=== PATIENT | female | born 1970 | race Caucasian/White ===

== ENCOUNTER 2018-07-16 01:21 | Outpatient (CLI) | payer BC, SELFPAY ==
--- NOTE | 2018-07-16 08:00 | DI.US_ITS ---
SYMPTOM/DIAGNOSIS: LT SIDED BLOATING SENSATION ABDOMINAL ULTRASOUND: 07/16/18 The examination is technically difficult due to the patient's body habitus. Hepatic parenchyma is somewhat heterogeneous in echotexture. There is an 8 mm in diameter left hepatic lobe lesion which may represent a small cyst or hemangioma. However, this is inadequately visualized for characterization. There are apparent multiple hepatic cysts, the largest in the right lobes superiorly measuring about 3.9 cm in greatest diameter. However, portions of these cysts are not well visualized and there may be wall thickening and/or intralesional increased echogenicity. Pancreas appears intact as visualized. No evidence of cholelithiasis or biliary dilatation. The kidneys are unremarkable in appearance. Abdominal aorta and IVC are of normal diameter. The spleen is unremarkable. CONCLUSION: Probable hepatic cysts as described above. Inadequate visualization to exclude solid lesion. Correlation with hepatic MRI is recommended.
== END 2018-07-16 01:41 ==
PROVIDERS: PCP Nurse Practitioner Family; Visit Provider Nurse Practitioner Family
DX: R10.32 Left lower quadrant pain (principal); R14.0 Abdominal distension (gaseous); K76.89 Other specified diseases of liver
CPT/HCPCS: 76700

== ENCOUNTER 2019-05-26 12:51 | Outpatient (REF) | payer BC, SELFPAY ==
--- NOTE | 2019-05-26 09:30 | PAPFT_PTH ---
PATIENT: Armida Sweeney LOC: [facility] U#:[id number] AGE/SX: 49/F ROOM: RE05/26/[address]: ILIA Olson : 1970 BED: DIS: 05/26/2019 SPEC #: [id number] RECD: 05/26/19 13:13 STATUS: BELLA REQ #: [id number] DESMOND: 05/26/19 09:[address]: Alexandria Navarro [facility] Cytology RECD BY: Bárbara Gomez Tissues: 1 - CX/ENDOCX FOR PAP SMEARS Procedures: PAP THIN PREP/UVM Screening HPV DNA PROBE Comments: [id number]
== END 2019-05-26 13:11 ==
LOC: LBN 12:51
PROVIDERS: PCP Nurse Practitioner Family; Visit Provider Nurse Practitioner Family
DX: N76.0 Acute vaginitis (principal); Z12.4 Encounter for screening for malignant neoplasm of cervix; Z11.51 Encounter for screening for human papillomavirus (HPV)
CPT/HCPCS: 88142; 87480; 87510; 87624; 87660

== ENCOUNTER 2019-06-03 01:45 | Outpatient (CLI) | payer BC, SELFPAY ==
[2019-06-03 11:40] LABS: Anion Gap 10.7 mmol/L (3-11); BUN 13 mg/dL (7-18); CO2 25.3 mmol/L (21.0-32.0); CREATININE 0.81 mg/dL (0.55-1.02); Calcium 8.7 mg/dL (8.5-10.1); Calculated LDL 114 mg/dL; Chloride 107 mmol/L (98-107); Cholesterol 180 mg/dL (50-200); Glucose 81 mg/dL (70-100); HDL Cholesterol 57 mg/dL (40-60); Potassium 4.3 mmol/L (3.5-5.1); Sodium 143 mmol/L (136-145); Triglyceride 47 mg/dL (30-150)
== END 2019-06-03 02:05 ==
PROVIDERS: PCP Nurse Practitioner Family; Visit Provider Nurse Practitioner Family
DX: E66.9 Obesity, unspecified (principal); E78.5 Hyperlipidemia, unspecified
CPT/HCPCS: 36415; 80048; 80061; 83721; 83036

== ENCOUNTER 2019-06-09 00:40 | Outpatient (CLI) | payer BC, SELFPAY ==
--- NOTE | 2019-06-09 10:45 | DI.MAMMO_ITS ---
SYMPTOM/DIAGNOSIS: SCREENING Z12.31 MAMMOGRAMS: Mammograms were interpreted according to the usual protocol including computer analysis with CAD system, tomosynthesis and C view imaging. Comparison with prior examinations. Breast density category B. No suspicious masses or microcalcifications are seen. There is no definite evidence of malignancy. IMPRESSION: Category 1, negative mammogram. Routine screening is recommended. Breast density category B. MQSA ASSESSMENT OF FINDINGS: Negative. Category 1. Patient will receive a letter notifying them of these results. BI-RADS category B. There are scattered areas of fibroglandular density.
== END 2019-06-09 01:00 ==
PROVIDERS: PCP Nurse Practitioner Family; Visit Provider Nurse Practitioner Family
DX: Z12.31 Encounter for screening mammogram for malignant neoplasm of breast (principal)
CPT/HCPCS: 77063; 77067

== ENCOUNTER 2019-12-12 10:58 | Outpatient (CLI) | payer BC, SELFPAY ==
--- NOTE | 2019-12-11 15:57 | DI.RAD_ITS ---
EXAM: XR HIP RT COMPLETE AP PELVIS CLINICAL HISTORY: Worsening right hip pain with limited ROM. M25.551 PAIN RT HIP TECHNIQUE: COMPARISON: No exams were available for comparison FINDINGS: Two views were obtained. There is marked narrowing of cartilaginous joint space of the right hip sup eriorly. There is moderate subchondral sclerosis of the acetabulum with mild acetabular spurring. F emoral head shows probable slight subchondral sclerosis and minimal marginal osteophyte formation. Slight DJD left hip noted. IMPRESSION: Severe DJD right hip.
== END 2019-12-12 11:18 ==
PROVIDERS: PCP Nurse Practitioner Family; Visit Provider Nurse Practitioner Family
DX: M25.551 Pain in right hip (principal); M16.11 Unilateral primary osteoarthritis, right hip
CPT/HCPCS: 73502

== ENCOUNTER 2020-01-05 11:57 | Outpatient (CLI) | payer BC, SELFPAY ==
--- NOTE | 2020-01-05 11:15 | DI.RAD_ITS ---
EXAM: XR STANDING ALIGNMENT CLINICAL HISTORY: hip pain TECHNIQUE: COMPARISON: No exams were available for comparison FINDINGS: AP views of the lower extremities were obtained for leg length determination. There are severe degen erative changes of the right hip and mild degenerative changes of the left hip. IMPRESSION:
== END 2020-01-05 12:17 ==
PROVIDERS: PCP Nurse Practitioner Family; Visit Provider Student in an Organized Health Care Education/Training Program
DX: M16.0 Bilateral primary osteoarthritis of hip (principal); M25.551 Pain in right hip; M25.552 Pain in left hip
CPT/HCPCS: 77073

== ENCOUNTER 2020-01-09 04:23 | Outpatient (CLI) | payer BC, SELFPAY ==
[2020-01-09] MEDS: methylPREDNISolone ACETATE 80 MG/ML VIAL IM (15:16)
[2020-01-09] MEDS: Omnipaque 300 MG/ML 10 ML BTL IJ (15:17)
[2020-01-09] MEDS: Bupivacaine 0.5% Pres-Free 10 ML VIAL 6 ML IJ (15:19)
--- NOTE | 2020-01-09 15:20 | DI.RAD_ITS ---
EXAM: RF JOINT INJECTION FLUORO GUID CLINICAL HISTORY: RT HIP PAIN, RT HIP INJ UNDER FLUORO, M25.551. TECHNIQUE: 2D and realtime digital imaging was performed. COMPARISON: No exams were available for comparison FINDINGS: Fluoroscopy was provided for Dr. Spear for guidance while performing a right hip injection. Pleprema malhotra see procedure note for details. Fluoro Time: 9 seconds
--- NOTE | 2020-01-09 19:30 | W.PROCNOTE ---
Date of service: 01/09/20 Time of Service: 14:30 Procedure Note Date of procedure: 01/09/20 Procedure: Right Hip Injection with Fluoroscopic Guidance Surgeon/Proceduralist/Physician: Ray Spear Procedure Diagnosis: Right Hip Osteoarthritis Procedure Indications: Armida has had persistent pain of the RIGHT hip and groin. Noninvasive measures have been tried. To serve as both diagnostic and therapeutic, an injection under fluoroscopy was recommended. I had discussed the risks of the procedure and the patient elected to proceed. Procedure Description: Armida was greeted in the flouroscopy room. The correct side was identified and the consent was reviewed with the patient and signed. The patient was then placed in the supine position on the fluoroscopy table. The RIGHT hip was then prepped with Chloraprep. The anterolateral injection starting point was identiifed by bony landmarks and fluoroscopy. The skin and soft tissue in the tract of the injection was anesthetized with 1% Lidocaine. A spinal needle was then inserted deep into the hip joint at the level of the lateral femoral neck under fluoroscopic guidance. A small amount of Omnipaque solution was injected to confirm intraarticular placement. Once confirmed, the hip was injected with 6cc of 0.5% Bupivicaine and 80mg of Depo-Medrol. A bandaid was placed on the injection site. The patient tolerated the procedure well and noted improvement in pre-injection pain.
== END 2020-01-09 04:43 ==
PROVIDERS: PCP Nurse Practitioner Family; Visit Provider Student in an Organized Health Care Education/Training Program
DX: M25.551 Pain in right hip (principal); M16.11 Unilateral primary osteoarthritis, right hip
CPT/HCPCS: 20610; 77002; J1040

== ENCOUNTER 2020-04-23 04:09 | Outpatient (CLI) | payer BC, SELFPAY ==
--- NOTE | 2020-04-22 10:13 | PDOC.CMIN ---
- If Service Date Differs Date of service: 04/22/20 Time of Service: 10:13 Care Management Initial Assess REASON FOR HOSPITALIZATION:: Right hip replacement surgery. PAST MEDICAL HISTORY/PAST SURGICAL HISTORY:: Medical/Surgical History: Trochanteric bursitis, right hip, arthritis of right hip, obesity, and hyperlipidemia. PREVIOUS FUNCTIONAL STATUS/SOCIAL/FAMILY SUPPORTS:: Armida lives in [place] with her , Enrique, and their youngest son. 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 Armida reports having a lot of support and people she can depend on in the community. Armida is independent with her ADLs at baseline. CURRENT FUNCTIONAL STATUS:: CM telephones Armida to assess potential needs and services post hip surgery, scheduled for 04/27/2020. Armida lives in a two-story home and her bedroom is on the second floor. She is making arrangements so she can remain on the first floor for a few days after her return home from the hospital. ADVANCE DIRECTIVES:: None on file. Has patient been provided with info about the portal/API?: Yes Did the patient sign up for the portal?: Yes (Previously enrolled.) CODE STATUS:: Full Code INSURANCE COVERAGE / FINANCIAL ISSUES:: [facility] CURRENT HOME/COMMUNITY SERVICES/EQUIPMENT:: Armida has a cane at home and a shower with a built-in seat. She will be purchasing a toilet riser seat prior to her surgery. She has no in-home or community services. PRIMARY CARE PHYSICIAN:: CHAGO Olson ([facility]) POTENTIAL DISCHARGE NEEDS:: FWW to be provided by CM, follow-up appointment with Dr. Spear, and outpatient physical therapy. PATIENT/FAMILY EDUCATION NEEDS:: Discharge instructions, limitations, follow-up plan of care, including Ask Me Three and self-management. ANTICIPATED BARRIERS TO DISCHARGE:: No anticipated barriers at this time. TRANSPORTATION:: Via private vehicle with family. PLAN:: Anticipate Armida will be discharged home when medically cleared by provider. She will follow up with Dr. Spear, outpatient physical therapy and her plan of care as prescribed. Her , Enrique, will drive her home via private vehicle when ready.
[2020-04-24 00:59] LABS: COVID-19 RT-PCR UVMMC Result Negative (Negative)
== END 2020-04-23 04:29 ==
PROVIDERS: PCP Nurse Practitioner Family; Visit Provider Student in an Organized Health Care Education/Training Program
DX: Z11.59 Encounter for screening for other viral diseases (principal); Z01.818 Encounter for other preprocedural examination
CPT/HCPCS: U0003

== ENCOUNTER 2020-04-23 09:13 | Outpatient (CLI) | payer BC, SELFPAY ==
[2020-04-23 12:02] LABS: HCT 43.7 % (36.0-46.0); HGB 14.2 g/dL (12.0-15.5); Mean Corp. HGB Concentration 32.5 g/dL (32.0-36.0); Mean Corpuscular Hemoglobin 27.8 pg (27.0-33.0); Mean Corpuscular Volume 85.5 fL (80-95); Mean Platelet Volume 9.8 fL (8.0-11.0); Platelet Count 359 x1000/uL (130-400); RBC 5.11 m/cumm (4.00-5.20); RBC Distribution Width 13.7 % (11.7-14.6); White Blood Cell Count 7.93 k/cumm (4.4-10.8)
[2020-04-23 12:32] LABS: Anion Gap 9.6 mmol/L (3-11); BUN 14 mg/dL (7-18); CO2 27.4 mmol/L (21.0-32.0); CREATININE 1.01 mg/dL (0.55-1.02); Calcium 8.9 mg/dL (8.5-10.1); Chloride 105 mmol/L (98-107); Estimated GFR 58.02 (mL/min/1.73m2); Glucose 101 mg/dL (74-106); Sodium 142 mmol/L (136-145)
== END 2020-04-23 09:33 ==
PROVIDERS: PCP Nurse Practitioner Family; Visit Provider Student in an Organized Health Care Education/Training Program
DX: M25.551 Pain in right hip (principal); M16.11 Unilateral primary osteoarthritis, right hip; Z01.818 Encounter for other preprocedural examination; Z01.812 Encounter for preprocedural laboratory examination
CPT/HCPCS: 36415; 80048; 85027; 86850; 86900; 86901

== ENCOUNTER 2020-04-23 11:04 | Outpatient (CLI) | payer BC, SELFPAY ==
--- NOTE | 2020-04-23 11:00 | DI.RAD_ITS ---
EXAM: XR PELVIS AP CLINICAL HISTORY: PRE OP. TECHNIQUE: 2D digital imaging was performed. COMPARISON: No exams were available for comparison FINDINGS: The right hip there is marked narrowing of the joint space. There is also subchondral sclerosis and possibly subchondral cysts. The left hip is well maintained. The bones are normally mineralized. T he soft tissues are unremarkable IMPRESSION: Marked arthritic changes of the right hip. DATA REPOSITORY: RADIATION DOSE DELIVERED:
== END 2020-04-23 11:24 ==
PROVIDERS: PCP Nurse Practitioner Family; Referring Provider Nurse Practitioner Family; Visit Provider Student in an Organized Health Care Education/Training Program
DX: M25.551 Pain in right hip (principal); M16.11 Unilateral primary osteoarthritis, right hip
CPT/HCPCS: 72170

== ENCOUNTER 2020-04-27 06:07 | Observation (INO) | payer BC, SELFPAY ==
[2020-04-27] VITALS (14 sets, daily range): BP systolic 111–132; BP diastolic 52–87; PULSE 66–88; RESP 11–18; TEMP 36.1–36.9; O2SAT 94–100
[2020-04-27] MEDS: Acetaminophen 500 MG TAB 1000 MG PO ×2 (06:39→12:54)
[2020-04-27] MEDS: Lactated Ringers 1,000 ML 80 ML IV ×2 (06:39→10:09)
[2020-04-27] MEDS: Celecoxib 200 MG CAP 400 MG PO (06:39)
--- NOTE | 2020-04-27 07:33 | W.PM.DS.N ---
Date of service: 04/27/20 DS: Diagnosis Discharge Diagnosis (1) Arthritis of right hip: Status: Chronic Discharge Plan Disposition Patient Disposition: HOME Condition: Good Discharge Details Reason For Visit: Right Hip DJD Admit Date/Time: 04/27/20 06:07 Admit Provider: Ray Spear Attending Provider: Ray Spear [facility] Course: Patient was admitted to the medical/surgical floor following the procedure. The surgery was tolerated well without any notable medical, surgical, or anesthetic complications. Mobilization began postoperatively. She was voiding spontaneously. Vitals were stable. Physical therapy worked with the patient and was cleared for discharge home. No acute medical issues. Pain was controlled on oral regimen. Home Meds and New Rx's Prescriptions: New celecoxib 200 mg capsule 200 mg PO BID PRN (Reason: pain) Qty: 60 RF: 1 aspirin 81 mg tablet,delayed release (DR/EC) 81 mg PO BID Qty: 60 RF: 0 acetaminophen 500 mg tablet 1,000 mg PO Q8H PRN (Reason: pain) Qty: 90 RF: 3 pantoprazole 40 mg tablet,delayed release (DR/EC) 40 mg PO DAILY Qty: 30 RF: 0 docusate sodium [Colace] 100 mg capsule 100 mg PO BID PRNQty: 10 RF: 0 oxycodone 5 mg tablet 5 mg PO Q4H Qty: 18 RF: 0 Continued ut-lyj-xiowl acid-lutein 1 EACH tablet,chewable 1 ea PO daily prn Qty: 1 RF: 0 Discharge Instructions Additional Instructions: Dr. Spear's Total Hip Discharge Instructions Activity: The most important activity is to walk. You should try to take short walks a few times a day. You have no restrictions on movement or positioning, but do not try to force what you do. You will find some stiffness and weakness with hip flexion (lifting your knee). Do not try to strengthen this too early, continue to practice walking and stairs and this will come. - Outpatient physical therapy can be helpful to help return you to a normal gait and improve your flexibility and strength. This can start around 2 weeks. For most patients, it?s not necessary. Usually this is determined at the time of discharge or at the first post-operative visit. - You should wear the PORSHA hose on both legs for 2 weeks. You may remove those at night. These prevent blood pooling and swelling. Dressing: Keep the surgical dressing in place for at least one week, although it may stay in place untill follow-up. It may get wet after 3 days but avoid soaking the dressing. If it gets wet, just lightly pat dry. Most people prefer to cover the dressing with some ClingWrap, Saran Wrap, to keep it dry. After the first week it may be removed if desired and then replaced with light gauze and tape or nothing. It is important to always keep some gauze or the dressing between skin folds, especially when you are sitting, so the incision is not folded over on itself at the belly fold. Medications: - You should take Tylenol and an anti-inflammatory, Celebrex, as your primary pain control medications. If the Celebrex is too expensive, you may take 2 Aleve twice a day. - You have been prescribed a stronger pain medication Oxycodone for breakthrough pain, take as needed as prescribed. - You have also been prescribed a stomach acid reduction agent Pantoprozole to help reduce stomach acid and reflux. - You will be taking Aspirin 81mg twice a day for DVT prevention unless instructed otherwise. - If you have constipation you should take Colace or Miralax (both [id number]). A prescription for Colace has been called in as well. It takes most people 3-4 days to have a bowel movement. Follow-up: 2 weeks. If you have any acute concerns or questions, please do not hesitate to contact the office at [phone]. You may contact Dr. Spear with any questions after hours through the hospital at [phone] or on his cell phone at [phone]. Referrals: Ray Spear MD [ [facility] STAFF PHYSICIAN] - 05/13/20 9:00 am Activity:: Activity as Tolerated Equipment/Supplies:: Walker Diet:: As Tolerated Discharge Orders Discharge Orders: Discharge Order (Routine); Ordered 04/27/20 Ordered By: Ray Spear DS: Summary Status at Discharge Functional status at discharge: uses cane/walker Overall status at discharge: patient is progressing back to baseline Mental Status: mental status grossly normal Speech and Movement: speech and movement normal Mood: congruent mood Affect: normal affect Exam Psych Mental Status: mental status grossly normal Speech and Movement: speech and movement normal Mood: congruent mood Affect: normal affect DS: Data Vitals/I&O Vitals and I&O: Vital Signs Temperature 36.7 C 04/27/20 06:22 Pulse 83 04/27/20 06:22 Pulse Rhythm Regular 04/27/20 06:22 Respiratory Rate 18 04/27/20 06:22 Respiratory Effort 04/27/20 06:22 Respiratory Depth Normal 04/27/20 06:22 Blood Pressure 132/74 04/27/20 06:22 Pulse Oximetry 100 04/27/20 06:22 Oxygen Delivery Method Room Air 04/27/20 06:22 Oxygen Flow Rate 0 04/27/20 06:22 Intake & Output 04/26/20 04/26/20 04/27/20 11:59 23:59 11:59 Weight 91.9 kg [facility] Medical History Herpes simplex labialis (Inactive) Hyperlipidemia (Chronic) Obesity (Chronic) Trochanteric bursitis, right hip (Acute) Surgical History S/P dilation and curettage (Acute ~1993) Family History Mother RA (rheumatoid arthritis) Polymyalgia rheumatica Father COPD (chronic obstructive pulmonary disease) Asthma Sister Carcinoid tumor Chromophobe renal cell carcinoma Son No problems noted. Son No problems noted. Daughter No problems noted. Maternal Grandfather Cancer of spine Maternal Grandmother Myocardial infarction Heart disease Ovarian cancer Paternal Grandfather No problems noted. Paternal Grandmother No problems noted. Social History Smoking/Tobacco Use Status: Never Drug use: Never Current gender identity: female
[2020-04-27] MEDS: ceFAZolin 2 GM/50 ML BAG IVPB (07:40)
[2020-04-27] MEDS: Ketorolac 30 MG/ML VIAL (08:12)
[2020-04-27] MEDS: Bupivacaine 0.25% Pres-Free 30 ML VIAL (08:13)
--- NOTE | 2020-04-27 09:00 | DI.RAD_ITS ---
EXAM: XR HIP RT IN OR CLINICAL HISTORY: Arthritis of right hip. TECHNIQUE: 2D and realtime digital imaging was performed. COMPARISON: No exams were available for comparison FINDINGS: Fluoroscopy was provided in the OR for Dr. Spear. Hard copy images show placement of a right hip prosthesis. The components appear well aligned. FLUORO TIME; 30 seconds RADIATION DOSE DELIVERED:
--- NOTE | 2020-04-27 10:27 | ROE_ITS ---
Date of service: 04/27/20 Time of Service: 09:28 Operative Note Operative Note DATE OF PROCEDURE: 04/27/20 PRE-OP DIAGNOSIS: Right Hip Osteoarthritis POST-OP DIAGNOSIS: same PROCEDURE: Right Anterior Total Hip Arthroplasty SURGEON: Ray Spear LINING INSERTER: Stiven Rose ANESTHESIA: spinal ESTIMATED BLOOD LOSS: 900 PATHOLOGY: none sent TOURNIQUET TIME: 0 COMPLICATIONS: None Patient was transported to: PACU Patient's condition: stable Implants: 1. Depuy [place] Acetabular Component, 50mm 2. Depuy Acetabular Liner, [id number] 3. Depuy Corail High Offset Femoral Stem, Size 12 4. Depuy Altrx Ceramic Femoral Head, Size 32+1mm Indications: I have seen Armida in clinic for symptoms of hip arthritis, confirmed with radiographic findings. She has exhausted nonoperative methods and was having significant limitations in daily function and desired better function and less pain. I discussed the technical details of a hip replacement. I explained the risks of the procedure to include, but not limited to, bleeding, infection, pain, stiffness, fracture, damage to nerves and vessels, damage to muscles and tendons, loosening, instability, leg length inequality, need for repeat procedure, blood clot and cardiopulmonary demise. Despite these risks, Armida elected to proceed. Findings: There was significant signs of arthritis throughout the hip. Additionally, there was extensive synovitis and inflammatory changes within the hip. Procedure Description: Armida was greeted in the preoperative holding area where the correct side was identified and marked. The consent was reviewed with the patient and signed. The history and physical was updated. All questions were answered. She was taken back to the operating room. A spinal anesthestic was then administered. The patient was placed into the supine position on the operating room table. The patient was then positioned onto the ARCH table. Both feet were wrapped with Webrill cotton wrap along with Coban. The feet were placed in specialized boots for the ARCH table, well seated within the boot and secured. SCDs were applied. The patient was then slid down onto a peroneal post and the nonoperative leg was secured in a leg perea attached to the table. The operative side was placed into the ARCH table attachment and bed height and positioning was secured. A preoperative AP pelvis was obtained to serve as a reference for determining leg lengths. Prophylactic antibiotics in the form of Cefazolin were administered. 1g of Tranxemic Acid was given intravenously within 30 minutes of incision. The right leg was then prepped with Chloraprep and draped in a standard fashion. A second prep with Chloraprep was performed prior to placement of a shower-curtain type drape with Iodine impregnated skin protection. A timeout to confirm correct identity, side and site, procedure, allergies, anesthesia, and medical concerns was performed. An obliquely oriented incision was made starting lateral to the ASIS and running distal over the Tensor Fascia Almita (TFL) muscle belly toward the fibular head, approximately 10cm. The skin and soft tissue was dissected sharply, through Sera?s fascia, and to the fascia of the TFL. With the fascia and superior border of the IT band identified, the fascia was incised with a new knife just above any perforators from the IT band. The TFL muscle belly was bluntly dissected away from the fascia and moved laterally. The fat between TFL and rectus was identified to ensure the dissection was not within the TFL. Blunt dissection created space between abductors and the capsule and retractor was placed over the lateral femoral neck. The fibers of the rectus femoris tendon were identified and these were freed from the anterior capsule. A second cobra retractor was placed around the medial femoral neck. The TFL was further retracted laterally to show the deep fascia. Careful dissection through this layer identified three main crossing vessels of the lateral femoral circumflex. These were cauterized in multiple locations and then cut without any noticeable bleeding. The TFL was further released bluntly from the deep fascia to expose anterior hip capsule and fat The Kishore orthopaedic retractor was then placed beneath the TFL and against sartorius and medial soft tissues to protect and retract the soft tissues. A T-capsulotomy was then performed starting at the superior lateral acetabulum and moving distally to the intertrochanteric ridge. These capsular flaps were tagged with a No. 1 Ethibond and elevated from within. The capsular flaps were released to the shoulder of the lateral neck and to the lesser trochanter to give excellent visualization of the proximal femur. A neck osteotomy was performed using an oscillating saw based on preoperative templates. This cut started in the shoulder and of the lateral neck and exited medially. The saw was at all times directed medially to avoid injury to the greater trochanter. 6cm of traction was applied to the leg and the osteotomy opened. The femoral head was removed with a corkscrew, making sure to protect the TFL on its exit. This was measured on the back table to determing the starting reamer size. Portions of the rectus obscuring visualization were minimally elevated off the superior acetabulum. An anterior retractor was placed over the anterior wall between capsule and labrum and attached to the Gripper retraction system. A posterior retractor was placed similarly. This provided excellent visualization. The contents of the cotyloid fossa were removed with electrocautery and the labrum was removed with a knife. There was a notable floor osteophyte. There was significant chondromalacia of the superior acetabulum. Acetabular reaming began with a 46mm reamer. This first reaming was directed anterior to posterior and medial to get down to the true floor. This was inspected and reamed until the true floor was reached. The anterior retractor was then released and entry and exit was provided by traction on the capsular flaps. I then reamed sequentially up to a 50mm reamer where good fit was obtained. The larger reamers were oriented based on anatomical reference of the anterior and lateral matute to ensure proper abduction and anteversion. Positioning and size was confirmed with the fluoroscopy. A 50mm Depuy [place] acetabular component was selected. The deep tissues were irrigated. The acetabular component was then impacted in a position of about 40-45 degrees of abduction and 15-20 degrees of anteversion, using the patient?s anatomy as the ultimate landmark. Fluoroscopy was used to confirm this. There was excellent clearing house clerk of the acetabular component and the inserting handle was removed. The acetabular liner, Depuy [id number] polyethylene liner, was inserted and lined up with the tines of the acetabular component. There was no soft tissue interposition. The liner was then impacted into position and confirmed to be well-seated. A portion of the erica-articular cocktail was then injected around the acetabulum into the capsule and periosteum. This cocktail consisted of 50cc of 0.25% Bupivicaine and 20cc of Exparel, expanded to a total of 120cc. Traction was released from the femur. The leg was rotated to 120 degrees. Any remaining medial capsule was released until the lesser trochanter was easily pa lpable. A Machado retractor was placed medially. The lateral capsule was further released into the shoulder to allow access to the greater trochanter. A Machado retractor was placed over the greater trochanter which allowed the trochanter to flip in front of the capsule for excellent exposure. The leg was brought down into maximal extension and 20 degrees of adduction while ensuring there was no impingement on the acetabulum. Any remnant capsule within the trochanter was released. Piriformis and obturator externis were identified and protected. There was excellent access to the proximal femur. The lateral neck remnant was removed with a rongeur. A blunt canal probe was used to identify the canal and trajectory for later broaching. A box osteotome initiated the broach course. A small curved rasp and a curved curette were used to work laterally. Broaching then began with a size 8 Corail broach. This was inserted manually around the trochanter and into the canal before mallet blows. The broach was seated to a few millimeters below the cut level based on the neck cut and the preoperative template. Sequential broaching was continued with the TrackingPoint pneumatic broaching device until a tight fit was obtained with good rotational control of the femur. A trial standard neck was inserted along with a +5 trial head. The leg was brought out of extension and adduction and then reduced with traction and internal rotation. The leg was stable anteriorly in a position of 30 degrees of extension and 90 degrees of external rotation. Fluoroscopy was used to ensure there was no fracture and the stem was seated well. Leg lengths were checked with an AP pelvis and pelvic reference points. [employer] navigation system was used to confirm appropriate positioning and leg length and offset. Based on the templating software, we had over-restored leg length by 1- 2mm and had not enough offset, so I went with a High Offset stem with a +1 head to give some leg length and slightly more offset. Once content with the desired offset and leg lengths, the leg was brought back into extension, external rotation and adduction. The periosteum and surrounding tissue was injected with remaining portion of the erica-articular cocktail. The proximal femur was irrigated as well as the deep tissues. The Depuy Corail High Offset stem, size 12, was then manually inserted into the proximal femur making sure to control rotation. It was then malleted into position with light blows, giving breaks to allow bone expansion and decrease risk of fracture. The selected Depuy Altrx Ceramic Head, size 32+1mm, was then placed onto the clean and dry trunnion and secured with impaction onto the tapered fit. The leg was brought back out of extension and adduction and reduced with t raction and internal rotation. Stability was confirmed with no shuck at 90 degrees of external rotation and 30 degrees of extension. No impingement through range of motion arc. Final x-ray images were obtained with fluoroscopy to confirm adequate positioning and no intraoperative fracture. The deep tissues were thoroughly irrigated with Irrisept chlorhexadine solution. The second dose of TXA 1g was administered intravenously.The capsule was then reapproximated with the previously placed Ethibond sutures. The TFL fascia was finally closed with a No. 2 Stratafix, barbed suture. Deep tissues were then reapproximated with 0 Vicryl and a running 2-0 Vicryl. The skin was closed with a running 4-0 Monocryl in a subcuticular fashion. This was reinforced with skin glue. A Mepilex silver dressing was applied. At the end of the case, all counts were correct. Armida was transferred to the hospital bed without difficulty and suffering no apparent complication, although she did have notable bleeding. The majority the bleeding was from the bony surfaces without any notable vascular injury. Armida has a good prognosis. Physical therapy will start today and without restrictions, weight-bearing as tolerated. Aspirin 81mg BID will be used for DVT prophylaxis.
--- NOTE | 2020-04-27 11:30 | IN_ITS ---
Date of service: 04/27/20 Time of Service: 11:30 PT Notes Visit Reasons: Right Hip DJD Physical Therapy Inpatient Initial Evaluation Date: 04/27/2020 Referring Doctor: Ray Spear MD PT Orders: PT CONSULT: Status post Ortho surgery. Status post right SAHRA. Precautions: Fall. Standard. WBAT on right LE. Patient Profile/Admitting Diagnosis: Armida is a 50-year-old female with primary unilateral osteoarthritis of the right hip status post total hip arthroplasty on postoperative day 0. PMHX: Medical History Herpes simplex labialis (Inactive) Hyperlipidemia (Chronic) Obesity (Chronic) Trochanteric bursitis, right hip (Acute) Surgical History S/P dilation and curettage (Acute ~1993) Social History/Home Situation: Armida lives with in a private home with 2 steps to enter that leads onto a porch and another 2 steps to get into the house. She has 10 steps to negotiate to the second floor of the house where her bedroom is but she states that the ground floor has been made ready for her once she comes back home from the hospital. She is independent with all aspects of ADLs prior to surgery. 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 Equipment Owned/DME: None Subjective: Armida reports some numbness side of her right thigh. She feels that she does not have full control of her right hip and knee. She is agreeable to trying out walking with the use of a walker. Objective: General Observation: IV in the right UE. Mepilex Ag over surgical incision. Bilateral TEDS on. Mental Status: Alert and oriented x4 Pain: Denies pain or discomfort but did say that she has some soreness on the right hip with movement and with ambulation activity. Vital Signs: Within normal limits as monitored by nursing staff before and after PT session. ROM: Right Upper Extremity: Shoulder Flexion WFL. Shoulder abduction WFL. Elbow flexion WFL. Wrist flexion WFL. Opening and closing of hand WFL. Left Upper Extremity: Shoulder Flexion WFL. Shoulder abduction WFL. Elbow flexion WFL. Wrist flexion WFL. Opening and closing of hand WFL. Right Lower Extremity: Hip flexion WFL. Hip abduction WFL. Knee flexion WFL. Ankle dorsiflexion WFL. Ankle plantarflexion WFL. Left Lower Extremity: Hip flexion WFL. Hip abduction WFL. Knee flexion WFL. Ankle dorsiflexion WFL. Ankle plantarflexion WFL. Strength: Right Upper Extremity: Shoulder flexors 5/5. Shoulder abductors 5/5. Elbow flexors 5/5. Elbow extensors 5/5. Heading Matcher And Assembler strong. Left Upper Extremity: Shoulder flexors 5/5. Shoulder abductors 5/5. Elbow flexors 5/5. Elbow extensors 5/5. Heading Matcher And Assembler strong. Right Lower Extremity: Hip flexors 4/5. Hip abductors 4/5. Knee flexors 4/5. Knee extensors 4/5. Ankle dorsiflexors 5/5. Ankle plantarflexors 5/5. Left Lower Extremity:Hip flexors 5/5. Hip abductors 5/5. Knee flexors 5/5. Knee extensors 5/5. Ankle dorsiflexors 5/5. Ankle plantarflexors 5/5. Sensation: Intact as to pain and pressure on bilateral lower extremities. Some numbness reported on the lateral side of right thigh. Bed Mobility/Transfers: Supine to sit standby assist Sit to stand contact-guard assist Stand to sit standby assist Bed to chair contact-guard assist Chair to bed contact-guard assist Gait: Patient tolerated level surface ambulation 150 feet using front wheeled walker with WBAT on right LE requiring contact-guard assist and IV pole management of PT. Nurse Phillip provided wheelchair follow for safety. Step-to gait pattern. Soreness reported on right hip. No LOB. No SOB. Balance: Static Sitting: Normal Dynamic Sitting: Normal Static Standing: Fair Dynamic Standing: Fair Special Tests: Mobility Limitations Standardized Measure [facility] AM-PAC 6 clicks Basic Mobility Inpatient Short Form: Raw Score: 19 CMS Score: 42% deficit Informed Consent/Education: Patient instructed in purpose of PT consult and plan of care. Assessment: Armida demonstrates with functional mobility decline, need for assistive ambulatory device for all mobility ADL performance, unsteadiness of gait, and decrease in strength and the right hip major muscle groups resulting from postoperative status. Armida is a 50-year-old female with primary unilateral osteoarthritis of the right hip status post total hip arthroplasty on postoperative day 0. Patient presents with clinical signs and symptoms consistent with current/admitting diagnoses that have resulted to mobility limitations, gait instability, generalized weakness, and impairment of motor control as demonstrated by the following impairment level findings: 1. Decreased strength to right hip major muscle groups 2. Impaired standing balance 3. Impaired activity tolerance Impairments are contributing to the following functional limitations: 1. Increased dependence with transfers 2. Inability to safely ambulate without assistive device and physical assistance 3. Increase completion time for mobility ADL performance 4. Increased fall risk 5. Inability to negotiate steps alone safely Patient is assessed as a 22808 moderate complexity based on the following: History: 50-year-old female with impairment level findings, functional limitations, and past medical history as indicated above Examination: Demonstrable impairment in strength, balance, and mobility level with underlying impairments and functional limitations as documented above Presentation:Evolving Decision Makin moderate complexity Goals: Goals X 1 day 1. Supine-Sit independent 2. Sit-Supine independent 3. Sit-Stand independent 4. Stand-Sit independent 5. Bed-Chair independent 6. Chair-Bed independent 7. Independent gait on level surface with use of least restrictive device for at least 300 feet without report of pain nor dyspnea 8. Independent stair negotiation while holding onto bilateral rails for at least 5 steps without report of pain nor dyspnea 9. Independent with home exercise program 10. Good static and dynamic standing balance/tolerance Plan of Care/Treatment Plan: 1-2x/day, 7 days/week x 1 week. Plan of care has been reviewed with the COMMAND AND CONTROL OFFICER providing the service under Physical Therapy direction. Initiate Physical Therapy intervention for strengthening, bed mobility, transfers, gait, stairs, balance training, use of assistive device. PT intervention: Session today consisted of initial physical therapy evaluation as well as education and training on functional mobility performance using the front wheeled walker. Patient also tolerated was educated and trained on room exercises consisting of gluteal setting x 10, quadriceps setting x10, and ankle pumping x20 to be done every 1 to 2 hours to minimize postoperative soft tissue complications. DISCHARGE RECOMMENDATIONS: Home when medically cleared by orthopedic surgeon. Outpatient physical therapy services according to orthopedic surgeon's timeline recommendations. TREATMENT CODE/TIME: 45345 x 30 minutes, 51410 X 15 minutes beginning at 11:30 AM. Thank you very much for this referral. Mayuri Angulo PT, DPT, CLT [facility], [place]
--- NOTE | 2020-04-27 13:08 | PDOC.CMDIS ---
- If Service Date Differs Date of service: 04/27/20 Time of Service: 13:08 LACE Index Scoring Tool - Questions: Length of Stay (in days): 1 Acuity (Admit via E.D.?): No E.D. Visits: 0 - Answers: Total Score: 1 Risk of Readmission: Low Risk Care Management Discharge Reason for Hospitalization: SAHRA Discharge Plan: Armida is being discharged home today. CM provided her with a FWW prior to discharge. PT will set up and adjust for the patient. Armida denies any additional needs at this time. She will transport home with her family at time of discharge. Patient/Family Education Needs: Discharge education, limitations and follow up plan of care including ask me three and self management.
[2020-04-27 13:42] LABS: HCT 41.9 % (36.0-46.0); HGB 13.8 g/dL (12.0-15.5)
[2020-04-27] MEDS: ceFAZolin 1 GM/50 ML BAG IVPB (14:28)
--- NOTE | 2020-04-27 15:51 | INDS_ITS ---
Date of service: 04/27/20 Time of Service: 14:09 PT Notes Visit Reasons: Right Hip DJD Inpatient Physical Therapy Discharge Summary Dates: 04/27/2020 Dates of Service: 04/27/2020 only Referring Doctor: Ray Spear MD PT Orders: PT CONSULT: Status post Ortho surgery. Status post right SAHRA. Precautions: Fall. Standard. WBAT on right LE. Patient Profile/Admitting Diagnosis: Armida is a 50-year-old female with primary unilateral osteoarthritis of the right hip status post total hip arthroplasty on postoperative day 0. PMHX: Medical History Herpes simplex labialis (Inactive) Hyperlipidemia (Chronic) Obesity (Chronic) Trochanteric bursitis, right hip (Acute) Surgical History S/P dilation and curettage (Acute ~1993) Social History/Home Situation: Armida lives with in a private home with 2 steps to enter that leads onto a porch and another 2 steps to get into the house. She has 10 steps to negotiate to the second floor of the house where her bedroom is but she states that the ground floor has been made ready for her once she comes back home from the hospital. She is independent with all aspects of ADLs prior to surgery. 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 Equipment Owned/DME: None Subjective: Armida is happy with how much more she is able to do for the afternoon afternoon session. She states that she has will be able to help her out as she recovers at home. Her ground-floor bedroom has been made ready for her when she goes home so she does not need to negotiate too much steps. Objective: General Observation: IV in the right UE. Mepilex Ag over surgical incision. Bilateral TEDS on. Mental Status: Alert and oriented x4 Pain: Denies pain or discomfort but did say that she has some soreness on the right hip with movement and with ambulation activity. Vital Signs: Within normal limits as monitored by nursing staff before and after PT session. ROM: Right Upper Extremity: Shoulder Flexion WFL. Shoulder abduction WFL. Elbow flexion WFL. Wrist flexion WFL. Opening and closing of hand WFL. Left Upper Extremity: Shoulder Flexion WFL. Shoulder abduction WFL. Elbow flexion WFL. Wrist flexion WFL. Opening and closing of hand WFL. Right Lower Extremity: Hip flexion WFL. Hip abduction WFL. Knee flexion WFL. Ank le dorsiflexion WFL. Ankle plantarflexion WFL. Left Lower Extremity: Hip flexion WFL. Hip abduction WFL. Knee flexion WFL. Ankle dorsiflexion WFL. Ankle plantarflexion WFL. Strength: Right Upper Extremity: Shoulder flexors 5/5. Shoulder abductors 5/5. Elbow flexors 5/5. Elbow extensors 5/5. [employer] Officer strong. Left Upper Extremity: Shoulder flexors 5/5. Shoulder abductors 5/5. Elbow flexors 5/5. Elbow extensors 5/5. [employer] Officer strong. Right Lower Extremity: Hip flexors 4/5. Hip abductors 4/5. Knee flexors 4/5. Knee extensors 4/5. Ankle dorsiflexors 5/5. Ankle plantarflexors 5/5. Left Lower Extremity:Hip flexors 5/5. Hip abductors 5/5. Knee flexors 5/5. Knee extensors 5/5. Ankle dorsiflexors 5/5. Ankle plantarflexors 5/5. Sensation: Intact as to pain and pressure on bilateral lower extremities. Some numbness reported on the lateral side of right thigh. Bed Mobility/Transfers: Supine to sit independent Sit to stand independent, front wheeled walker Stand to sit independent Bed to chair supervision, needs front wheeled walker Chair to bed supervision, needs front wheeled walker Gait: Patient tolerated level surface ambulation 120 feet x2 using front wheeled walker with WBAT on right LE requiring contact-guard assist and IV pole management of PT. Nurse Phillip provided wheelchair follow for safety. Step-to gait pattern. Soreness reported on right hip. Patient also tolerated six 4 inch steps and four 6 inch steps while holding onto bilateral rails with step to gait pattern with supervision assist and minimal verbal cueing for correct technique. No LOB. No SOB. Balance: Static Sitting: Normal Dynamic Sitting: Normal Static Standing: Fair Dynamic Standing: Fair Assessment: Armida demonstrates with functional mobility decline, need for assistive ambulatory device for all mobility ADL performance, unsteadiness of gait, and decrease in strength and the right hip major muscle groups resulting from postoperative status. Armida is a 50-year-old female with primary unilateral osteoarthritis of the right hip status post total hip arthroplasty on postoperative day 0. She will have adequate family support at home and has all equipment she needs at this time. Goals: Goals X 1 day 1. Supine-Sit independent MET 2. Sit-Supine independent MET 3. Sit-Stand independent MET 4. Stand-Sit independent MET 5. Bed-Chair independent NOT MET 6. Chair-Bed independent NOT MET 7. Independent gait on level surface with use of least restrictive device for at least 300 feet without report of pain nor dyspnea NOT MET 8. Independent stair negotiation while holding onto bilateral rails for at least 5 steps without report of pain nor dyspnea NOT MET 9. Independent with home exercise program NOT MET 10. Good static and dynamic standing balance/tolerance MET PT intervention: Session in the afternoon consisted of continued education and training on ambulation performance using the front wheeled walker and stair negotiation strategies. Patient was educated and trained on TKA exercise protocol and was provided with exercise packet to be brought home. Front- wheeled walker was requested from care management and was assembled for patient prior to discharge today. DISCHARGE RECOMMENDATIONS: Home when medically cleared by orthopedic surgeon. Outpatient physical therapy services according to orthopedic surgeon's timeline recommendations. TREATMENT CODE/TIME: 68774 X 42 minutes beginning at 14:41 PM. Thank you very much for this referral. Mayuri Angulo PT, DPT, CLT [facility] [place], [place]
== END 2020-04-27 17:15 | disposition home or self-care (01) | DRG 470 ==
LOC: PDS 09:25 → MS 11:26 → PDS 04-29 15:25 → MS 04-29 15:26
PROVIDERS: Admitting Provider Student in an Organized Health Care Education/Training Program; PCP Nurse Practitioner Family; Visit Provider Student in an Organized Health Care Education/Training Program
PROC: 0SR904A Replacement of Right Hip Joint with Ceramic on Polyethylene Synthetic Substitute, Uncemented, Open Approach (ICD-10-PCS; CPT 27130; principal; 2020-04-27 07:30)
DX: M16.11 Unilateral primary osteoarthritis, right hip (principal); M25.551 Pain in right hip; Z96.641 Presence of right artificial hip joint
CPT/HCPCS: 27130; 20985; C1776; 36415; 76000; 97162; 97530; NC; 73501; 85014; 85018; G0378; J0131; J0690; J1885; J2001

== ENCOUNTER 2020-05-13 10:45 | Outpatient (CLI) | payer BC, SELFPAY ==
--- NOTE | 2020-05-13 08:45 | DI.RAD_ITS ---
EXAM: XR HIP RT COMPLETE AP PELVIS INDICATION: 1ST POST OP. COMPARISON: CR XR HIP RT COMPLETE AP PELVIS from 12/11/2019 XR HIP RT IN OR from 04/27/2020 TECHNIQUE: 2D digital imaging was performed. FINDINGS: There are stable postsurgical changes of a right total hip arthroplasty. No bone or joint abnormalit y is identified. The soft tissues are unremarkable. IMPRESSION: Stable right total hip arthroplasty. DATA REPOSITORY: RADIATION DOSE DELIVERED:
== END 2020-05-13 11:05 ==
PROVIDERS: PCP Nurse Practitioner Family; Visit Provider Physician Assistant Surgical
DX: Z96.641 Presence of right artificial hip joint (principal); Z47.1 Aftercare following joint replacement surgery
CPT/HCPCS: 73502

== ENCOUNTER 2020-07-23 04:17 | Outpatient (CLI) | payer BC, SELFPAY ==
--- NOTE | 2020-07-23 07:30 | DI.MAMMO_ITS ---
EXAM: MAMMO SCREENING CLINICAL HISTORY: screening,Z12.39 TECHNIQUE: Mammograms were interpreted according to the usual protocol including computer analysis w [employer] CAD system, tomosynthesis and C-view imaging. COMPARISON: 2011 through 2018 FINDINGS: The breasts are composed of mainly fatty density , Breast Density category A. No suspicious masses or suspicious microcalcifications are seen. No skin thickening or abnormal axillary lymph nodes are seen. There has been no significant change from prior exams. IMPRESSION: BI-RADS Category 1, Negative mammogram Yearly screening mammography is recommended. Breast Density - Category A, fatty density. A negative radiographic report should not delay biopsy if a dominant or clinically suspicious mass is present. Up to ten percent of cancers are not identified on mammography. A negative report may reinforce clinical impression. Adenosis and dense breasts may obscure an underlying neoplasm. False positive reports average 6 to 10%. Patient will receive a letter notifying them of these results.
== END 2020-07-23 04:37 ==
PROVIDERS: PCP Nurse Practitioner Family; Visit Provider Nurse Practitioner Family
DX: Z12.31 Encounter for screening mammogram for malignant neoplasm of breast (principal); R92.2 Inconclusive mammogram
CPT/HCPCS: 77063; 77067

== ENCOUNTER 2021-04-28 10:50 | Outpatient (CLI) | payer BC, SELFPAY ==
--- NOTE | 2021-04-28 07:45 | DI.RAD_ITS ---
Exam(s) XR HIP RT AP LAT ONLY EXAM: XR HIP RT AP LAT ONLY CLINICAL HISTORY: annual f/u R SAHRA. TECHNIQUE: 2D digital imaging was performed. COMPARISON: CR XR HIP RT COMPLETE AP PELVIS from 05/13/2020 FINDINGS: There is continued satisfactory appearance of the right hip prosthesis with no evidence of fracture o r loosening. No radiographic evidence of osteomyelitis. IMPRESSION: DATA REPOSITORY: RADIATION DOSE DELIVERED:
== END 2021-04-28 10:51 | disposition home or self-care (01) ==
LOC: DIORS 10:50
PROVIDERS: PCP Nurse Practitioner Family; Referring Provider Nurse Practitioner Family; Visit Provider Student in an Organized Health Care Education/Training Program
DX: Z96.641 Presence of right artificial hip joint (principal); Z47.1 Aftercare following joint replacement surgery
CPT/HCPCS: 73502

== ENCOUNTER 2021-06-29 02:08 | Outpatient (CLI) | payer BC, SELFPAY ==
[2021-06-29 10:43] LABS: Anion Gap 10.4 mmol/L (3-11); BUN 11 mg/dL (7-18); CO2 26.6 mmol/L (21.0-32.0); CREATININE 0.8 mg/dL (0.55-1.02); Calcium 8.7 mg/dL (8.5-10.1); Calculated LDL 97 mg/dL (<100); Chloride 103 mmol/L (98-107); Cholesterol 160 mg/dL (<200); Glucose 84 mg/dL (74-106); HDL Cholesterol 53 mg/dL (40-60); Potassium 4.2 mmol/L (3.5-5.1); Sodium 140 mmol/L (136-145); Triglyceride 54 mg/dL (<150)
== END 2021-06-29 02:09 | disposition home or self-care (01) ==
PROVIDERS: PCP Nurse Practitioner Family; Visit Provider Nurse Practitioner Family
DX: E78.5 Hyperlipidemia, unspecified (principal)
CPT/HCPCS: 36415; 80048; 80061

== ENCOUNTER 2021-07-27 01:51 | Outpatient (CLI) | payer BC, SELFPAY ==
--- NOTE | 2021-07-27 15:00 | DI.MAMMO_ITS ---
Exam(s) MAMMO SCREENING EXAM: MAMMO SCREENING CLINICAL HISTORY: screening, Z12.39 TECHNIQUE: Bilateral full field digital CC and MLO mammographic images were obtained with 3D tomosyn thesis and utilizing computer aided detection (CAD). COMPARISON: Available for comparison. FINDINGS: Masses/Architectural Distortion: None seen. Microcalcifications: No suspicious pleomorphic-type are seen. Skin Thickening/Nipple Retraction: None. IMPRESSION: 1. No significant interval change with no specific features of malignancy noted. 2. Unless there is more urgent need, screening mammography is recommended, as per [place] [employer] guidelines. BI-RADS Category 1 - Negative Breast Density - Category B - Scattered areas of fibroglandular density Breast density category C or D implies that the patient has dense breast tissue. Dense breast tissue is very common and is not abnormal but dense breast tissue can make it harder to find cancer on a ma mmogram. Also, dense breast tissue may increase their breast cancer risk. This information about the result of the mammogram report was provided to the patient to raise their awareness. Use this report when you speak with the patient about their risks for breast cancer, which includes their family hist ory. At that time, you may recommend for more screening tests (Ultrasound or MRI) as they might be us eful based on their risk. A negative radiographic report should not delay biopsy if a dominant or clinically suspicious mass is present. Up to ten percent of cancers are not identified on mammography. A negative report may reinforce clinical impression. Adenosis and dense breasts may obscure an underlying neoplasm. False positive reports average 6 to 10%. Patient will receive a letter notifying them of these results.
== END 2021-07-27 02:11 ==
PROVIDERS: PCP Nurse Practitioner Family; Visit Provider Nurse Practitioner Family
DX: Z12.31 Encounter for screening mammogram for malignant neoplasm of breast (principal)
CPT/HCPCS: 77063; 77067

== ENCOUNTER 2022-09-08 00:51 | Outpatient (CLI) | payer BC, SELFPAY ==
--- NOTE | 2022-09-08 07:45 | DI.MRI_ITS ---
Exam(s) MR LOWER EXTREMITY RT WO/W EXAM: MR LOWER EXTREMITY RT WO/W CLINICAL HISTORY: right thigh mass,SUSPICIOUS ON US,R22.41 TECHNIQUE: Multiplanar multisequence MRI of the right thigh was performed. CONTRAST MATERIAL: IV Contrast: 20 ML of Dotarem contrast administered. COMPARISON: CR XR HIP RT AP LAT ONLY from 04/28/2021 US US SOFT TISSUE EXTREMITY from 08/17/2022 FINDINGS: There is a complex cystic and solid enhancing mass interposed between the rectus femoris and tensor f ascia evangelista muscles. It measures 5.4 cm AP x 3.7 cm transverse by at least 16 cm craniocaudad. There does not appear to be involvement of the underlying bone. There is mild enhancement of the surround ing soft tissues.There are enlarged inguinal lymph nodes. The largest measures 2.2 x 1.8 cm.The florina ent has a prior right total hip arthroplasty. The visualized bones shows normal signal. IMPRESSION: 1. Heterogeneously enhancing mass in the anterolateral right thigh. A sarcomatous lesion should be c onsidered. Biopsy should be considered for further evaluation. An infection/abscess cannot be entir pierre excluded. 2. Enlarged right inguinal lymph nodes. 3. Right total hip arthroplasty. DATA REPOSITORY:
[2022-09-08] MEDS: Normal Saline Flush 10 ML SYR IVP (11:10)
[2022-09-08] MEDS: Gadoterate meglumine 20 ML SYRINGE IVP (11:11)
== END 2022-09-08 01:11 ==
PROVIDERS: PCP Nurse Practitioner Family; Visit Provider Nurse Practitioner Family
DX: R22.41 Localized swelling, mass and lump, right lower limb (principal); Z96.641 Presence of right artificial hip joint
CPT/HCPCS: 73720

== ENCOUNTER 2022-09-13 04:13 | Outpatient (CLI) | payer BC, SELFPAY ==
[2022-09-13 12:18] LABS: Absolute Basophil Count 0.06 10^3/uL (0.0-0.2); Absolute Eosinophil Count 0.31 10^3/uL (0.0-0.7); Absolute Lymphocyte Count 1.69 10^3/uL (1.2-3.4); Absolute Monocyte Count 0.55 10^3/uL (0.1-0.8); Absolute Neutrophil Count 4.95 10^3/uL (1.2-6.7); Basophils % 0.8; HGB 12.6 g/dL (11.2-15.7); Immature Grans % 1.3; Lymphocytes % 22.1; MCH 24.6 pg (27.0-33.0); MCV 82 fL (80-95); MPV 9.8 fL (8.0-11.0); Monocytes % 7.2; Neutrophils % 64.6; Platelet Count 396 10^3/uL (130-400); RBC 5.12 10^6/uL (3.93-5.22); RDW 14.6 % (11.7-14.6); RDW-SD 43.7 fL; WBC 7.66 10^3/uL (4.4-10.8)
[2022-09-13 12:23] LABS: ESR 59 mm/hr (0-30)
[2022-09-13 12:45] LABS: ALT 13 U/L (14-59); AST 13 U/L (15-37); Albumin 3.3 g/dL (3.4-5.0); Alkaline Phosphatase 64 U/L (46-116); BUN 11 mg/dL (7-18); Bilirubin, Total 0.5 mg/dL (0.2-1.0); CREATININE 0.9 mg/dL (0.55-1.02); Chloride 104 mmol/L (98-107); Estimated GFR 76.92 (mL/min/1.73m2); Glucose 81 mg/dL (74-106); Potassium 3.9 mmol/L (3.5-5.1); Sodium 141 mmol/L (136-145); Total Protein 8.4 g/dL (6.4-8.2)
[2022-09-13 17:20] LABS: CRP, High Sensitivity 10.06 mg/L (See Note)
== END 2022-09-13 04:14 | disposition home or self-care (01) ==
LOC: LOS 04:14
PROVIDERS: PCP Nurse Practitioner Family; Visit Provider Nurse Practitioner Family
DX: E66.9 Obesity, unspecified (principal); R22.41 Localized swelling, mass and lump, right lower limb
CPT/HCPCS: 36415; 80053; 85652; 86141; 84443; 85025

== ENCOUNTER 2022-09-28 02:56 | Outpatient (CLI) | payer BC, SELFPAY ==
--- NOTE | 2022-09-28 15:32 | DI.MAMMO_ITS ---
Exam(s) MAMMO SCREENING EXAM: MAMMO SCREENING CLINICAL HISTORY: screening,Z12.39 TECHNIQUE: Mammograms were interpreted according to the usual protocol including computer analysis w [employer] CAD system, tomosynthesis and C-view imaging. COMPARISON: FINDINGS: The breasts are of moderate density with fairly symmetrical distribution of fibroglandular tissue. N o dominant mass or clumped microcalcification is identified in either breast. The current examinatio n is compared with previous examinations including July 2021 and there has been no gross interva l change in appearance in comparison with the prior studies. IMPRESSION: No specific evidence of malignancy at this time. Routine screening examinations are suggested at yea rly intervals in this age group according to the ACS ACR guidelines. BI-RADS Category 1 - Negative Breast Density - Category B - Scattered areas of fibroglandular density
== END 2022-09-28 03:16 ==
PROVIDERS: PCP Nurse Practitioner Family; Visit Provider Nurse Practitioner Family
DX: Z12.31 Encounter for screening mammogram for malignant neoplasm of breast (principal)
CPT/HCPCS: 77063; 77067

== ENCOUNTER 2022-10-04 01:47 | Outpatient (CLI) | payer BC, SELFPAY ==
--- NOTE | 2022-10-04 06:45 | DI.NM_ITS ---
Exam(s) NM BONE SCAN 3 PHASE EXAM: NM BONE SCAN 3 PHASE CLINICAL HISTORY: S/P RTHA, PAIN,MASS RT THIGH, R22.41. TECHNIQUE: Injected Dose: 20 mCi Tc-99m MDP Routine 3 phase bone scan was performed. Delayed Images: 2-3 hours. COMPARISON: MR MR LOWER EXTREMITY RT WO/W from 09/08/2022 FINDINGS: Symmetric axial uptake. Bilateral renal excretion is identified. There is symmetric uptake in the danielle ulders bilaterally. This likely reflects degenerative change. There is increased radiotracer uptake on the on the angiogram and blood pool phases in the soft tissues lateral and anterior to the right greater trochanter. There is faint persistent increased radiotracer noted on the 3 hour delayed imag es in this area. There is a lucency consistent with the patient's known right total hip arthroplasty . There is a focus of increased radiotracer uptake in the greater trochanter of the right femur on t he 3 hour delayed images. No corresponding signal abnormality is seen on the MRI of the right thigh from 09/08/2022. This area is somewhat limited on the MRI examination due to artifact from the patie nt's hardware. This area cannot be from the soft tissue uptake on the angiogram or blood p ool phases on the bone scan. No other suspicious areas of abnormal uptake are seen in the axial or a ppendicular skeleton. IMPRESSION: 1. Increased radiotracer uptake in the soft tissues anterior and lateral to the right greater trochan ter. This corresponds to the soft tissue abnormality seen on the MRI of the right hip from 2. An infectious process should be considered. Neoplasm cannot be entirely excluded. Tissue sampli ng may be considered for further evaluation. 2. Small focus of radiotracer uptake in the region the right greater trochanter adjacent to the ortho pedic hardware. There is no definite corresponding signal abnormality seen on the MRI of the hip fro m 09/08/2022. This may be related to the orthopedic hardware but the possibility of osteomyelitis ca nnot be excluded. DATA REPOSITORY:
== END 2022-10-04 02:07 ==
PROVIDERS: PCP Nurse Practitioner Family; Visit Provider Student in an Organized Health Care Education/Training Program
DX: R22.41 Localized swelling, mass and lump, right lower limb (principal); Z96.641 Presence of right artificial hip joint; M79.89 Other specified soft tissue disorders
CPT/HCPCS: 78315

== ENCOUNTER 2022-10-09 14:13 | Outpatient (CLI) | payer BC, SELFPAY ==
--- NOTE | 2022-10-09 13:45 | DI.RAD_ITS ---
Exam(s) XR HIP RT AP LAT ONLY EXAM: XR HIP RT AP LAT ONLY INDICATION: eval R hip mass. COMPARISON: CR XR HIP RT COMPLETE AP PELVIS from 05/13/2020 CR XR HIP RT AP LAT ONLY from 04/28/2021 TECHNIQUE: 2D digital imaging was performed. Two views. FINDINGS: There has been no change in the alignment of the right hip prosthesis or appearance of the surroundin g bone. DATA REPOSITORY: RADIATION DOSE DELIVERED:
== END 2022-10-09 14:14 | disposition home or self-care (01) ==
LOC: DIORS 14:14
PROVIDERS: PCP Nurse Practitioner Family; Referring Provider Nurse Practitioner Family; Visit Provider Student in an Organized Health Care Education/Training Program
DX: R22.41 Localized swelling, mass and lump, right lower limb (principal); Z96.641 Presence of right artificial hip joint
CPT/HCPCS: 73502

== ENCOUNTER 2022-10-12 03:09 | Outpatient (CLI) | payer BC, SELFPAY ==
--- NOTE | 2022-10-12 07:45 | DI.RAD_ITS ---
Exam(s) RF JOINT INJECTION FLUORO GUID EXAM: RF JOINT INJECTION FLUORO GUID CLINICAL HISTORY: R HIP ASPIRATION-HIP INFECTION,RT HIP PAIN, M25.559, Z96.649,PRESENCE OF TECHNIQUE: 2D and realtime digital imaging was performed. COMPARISON: CR XR HIP RT AP LAT ONLY from 10/09/2022 FINDINGS: Fluoroscopy was utilized by Dr. Spear during apparent bilateral hip injection. Hard copy show nee dle placement overlying right hip prosthesis and left hip joint. IMPRESSION: RADIATION DOSE DELIVERED: caleb Walsh=5.11 mGy Total DLP
--- NOTE | 2022-10-13 08:11 | W.PROCNOTE ---
Date of service: 10/12/22 Time of Service: 14:20 Procedure Note Date of procedure: 10/12/22 Procedure: Right Hip Aspiration with Fluoroscopic Guidance Surgeon/Proceduralist/Physician: Ray Spear Procedure Diagnosis: Right Hip Pain and Thigh Mass Procedure Indications: Armida has had worsening pain about her right hip with a mass about the right thigh. There is concern this could be infection from her previous right hip replacement. Therefore I recommended a fluoroscopically guided aspiration of the right hip. I had discussed the risks of the procedure and the patient elected to proceed. Procedure Description: Armida was greeted in the flouroscopy room. The correct side was identified and the consent was reviewed with the patient and signed. The patient was then placed in the supine position on the fluoroscopy table. The RIGHT hip was then prepped with Chloraprep. The anterolateral injection starting point was identiifed by bony landmarks and fluoroscopy. This was started slightly more superiorly knowing the masslike structure which existed more distally. The skin and soft tissue in the tract of the injection was anesthetized with 1% Lidocaine. A spinal needle was then inserted deep into the hip joint until it came in contact with the femoral head and the femoral neck. The contact metal confirmed the location being intra-articular. I was able to remove 1 to 2 cc of thick blood. I reposition the needle in multiple locations always in contact with metal or the ceramic head and still was only able to remove an additional 1 cc of thick blood. Given the thick nature of this I only sent it for culture. A bandaid was placed on the injection site. The patient tolerated the procedure well and noted improvement in pre-injection pain.
== END 2022-10-12 03:29 ==
PROVIDERS: PCP Nurse Practitioner Family; Visit Provider Student in an Organized Health Care Education/Training Program
DX: M25.551 Pain in right hip (principal); R22.41 Localized swelling, mass and lump, right lower limb
CPT/HCPCS: 20610; 77002; 87070; 87205

== ENCOUNTER 2022-10-12 03:56 | Outpatient (CLI) | payer BC, SELFPAY ==
[2022-10-12 14:58] LABS: C-Reactive Protein 1.37 mg/dL (0.0-0.3); CREATININE 0.9 mg/dL (0.55-1.02); Estimated GFR 76.92 (mL/min/1.73m2)
[2022-10-17 21:13] LABS: Chromium, Serum <0.1 ng/mL (<0.3); Cobalt, S <0.2 ng/mL
== END 2022-10-12 03:57 | disposition home or self-care (01) ==
LOC: LBO 03:56
PROVIDERS: PCP Nurse Practitioner Family; Visit Provider Student in an Organized Health Care Education/Training Program
DX: R22.41 Localized swelling, mass and lump, right lower limb (principal); M25.551 Pain in right hip; Z96.641 Presence of right artificial hip joint
CPT/HCPCS: 36415; 82495; 82565; 83789; 86140

== ENCOUNTER 2022-11-21 20:22 | Outpatient (REF) | payer BC, SELFPAY ==
[2022-11-21 21:26] LABS: Abs Immature Grans 0.05 10^3/uL (0.0-0.06); Absolute Basophil Count 0.04 10^3/uL (0.0-0.2); Absolute Eosinophil Count 0.48 10^3/uL (0.0-0.7); Absolute Lymphocyte Count 1.53 10^3/uL (1.2-3.4); Absolute Monocyte Count 0.64 10^3/uL (0.1-0.8); Absolute Neutrophil Count 6.16 10^3/uL (1.2-6.7); Basophils % 0.4; Eosinophils % 5.4; HGB 9.5 g/dL (11.2-15.7); Immature Grans % 0.6; Lymphocytes % 17.2; MCH 26.9 pg (27.0-33.0); MCHC 30.6 % (32.0-36.0); MCV 88 fL (80-95); MPV 9.7 fL (8.0-11.0); Monocytes % 7.2; Neutrophils % 69.2; Platelet Count 461 10^3/uL (130-400); RBC 3.53 10^6/uL (3.93-5.22); RDW 16.2 % (11.7-14.6); RDW-SD 51.4 fL
[2022-11-21 21:54] LABS: ALT 46 U/L (14-59); AST 41 U/L (15-37); Albumin 2.8 g/dL (3.4-5.0); Alkaline Phosphatase 54 U/L (46-116); Anion Gap 5.8 mmol/L (3-11); BUN 13 mg/dL (7-18); Bilirubin, Total 0.3 mg/dL (0.2-1.0); C-Reactive Protein 2.41 mg/dL (0.0-0.3); CO2 30.2 mmol/L (21.0-32.0); CREATININE 0.8 mg/dL (0.55-1.02); Calcium 8.6 mg/dL (8.5-10.1); Chloride 103 mmol/L (98-107); Glucose 103 mg/dL (74-106); Potassium 4.3 mmol/L (3.5-5.1); Sodium 139 mmol/L (136-145); Total Protein 6.7 g/dL (6.4-8.2)
== END 2022-11-21 20:23 | disposition home or self-care (01) ==
LOC: LBN 20:22
PROVIDERS: PCP Nurse Practitioner Family; Visit Provider Student in an Organized Health Care Education/Training Program
DX: T84.51XA Infection and inflammatory reaction due to internal right hip prosthesis, initial encounter (principal)
CPT/HCPCS: 80053; 85025; 86140

== ENCOUNTER 2022-11-27 13:29 | Outpatient (REF) | payer BC, SELFPAY ==
[2022-11-27 14:14] LABS: Abs Immature Grans 0.05 10^3/uL (0.0-0.06); Absolute Basophil Count 0.06 10^3/uL (0.0-0.2); Absolute Eosinophil Count 0.34 10^3/uL (0.0-0.7); Absolute Lymphocyte Count 1.51 10^3/uL (1.2-3.4); Absolute Monocyte Count 0.57 10^3/uL (0.1-0.8); Absolute Neutrophil Count 5.79 10^3/uL (1.2-6.7); Basophils % 0.7; Eosinophils % 4.1; HCT 32.3 % (36.0-46.0); HGB 9.9 g/dL (11.2-15.7); Immature Grans % 0.6; Lymphocytes % 18.1; MCH 26.7 pg (27.0-33.0); MCHC 30.7 % (32.0-36.0); MCV 87 fL (80-95); MPV 9.9 fL (8.0-11.0); Monocytes % 6.9; Neutrophils % 69.6; Platelet Count 481 10^3/uL (130-400); RBC 3.71 10^6/uL (3.93-5.22); RDW 15.5 % (11.7-14.6); RDW-SD 49.1 fL; WBC 8.32 10^3/uL (4.4-10.8)
[2022-11-27 14:35] LABS: ALT 31 U/L (14-59); AST 20 U/L (15-37); Albumin 3.1 g/dL (3.4-5.0); Alkaline Phosphatase 74 U/L (46-116); Anion Gap 6.7 mmol/L (3-11); BUN 16 mg/dL (7-18); Bilirubin, Total 0.4 mg/dL (0.2-1.0); C-Reactive Protein 0.76 mg/dL (0.0-0.3); CO2 28.3 mmol/L (21.0-32.0); CREATININE 0.8 mg/dL (0.55-1.02); Calcium 8.6 mg/dL (8.5-10.1); Chloride 103 mmol/L (98-107); Glucose 94 mg/dL (74-106); Potassium 4.2 mmol/L (3.5-5.1); Sodium 138 mmol/L (136-145)
== END 2022-11-27 13:30 | disposition home or self-care (01) ==
LOC: LBN 13:29
PROVIDERS: PCP Nurse Practitioner Family; Visit Provider Student in an Organized Health Care Education/Training Program
DX: T84.51XA Infection and inflammatory reaction due to internal right hip prosthesis, initial encounter (principal); Z96.641 Presence of right artificial hip joint; M25.551 Pain in right hip
CPT/HCPCS: 80053; 85025; 86140

== ENCOUNTER 2022-12-04 14:41 | Outpatient (REF) | payer BC, SELFPAY ==
[2022-12-04 14:54] LABS: Abs Immature Grans 0.03 10^3/uL (0.0-0.06); Absolute Basophil Count 0.05 10^3/uL (0.0-0.2); Absolute Eosinophil Count 0.39 10^3/uL (0.0-0.7); Absolute Lymphocyte Count 1.24 10^3/uL (1.2-3.4); Absolute Monocyte Count 0.52 10^3/uL (0.1-0.8); Absolute Neutrophil Count 5.84 10^3/uL (1.2-6.7); Basophils % 0.6; Eosinophils % 4.8; HCT 32.9 % (36.0-46.0); HGB 10.2 g/dL (11.2-15.7); Immature Grans % 0.4; Lymphocytes % 15.4; MCH 26.6 pg (27.0-33.0); MCV 86 fL (80-95); MPV 9.8 fL (8.0-11.0); Monocytes % 6.4; Neutrophils % 72.4; Platelet Count 430 10^3/uL (130-400); RBC 3.84 10^6/uL (3.93-5.22); RDW 14.6 % (11.7-14.6); RDW-SD 45.5 fL; WBC 8.07 10^3/uL (4.4-10.8)
[2022-12-04 16:03] LABS: ALT 15 U/L (14-59); AST 17 U/L (15-37); Albumin 3.2 g/dL (3.4-5.0); Alkaline Phosphatase 88 U/L (46-116); Anion Gap 7.7 mmol/L (3-11); BUN 13 mg/dL (7-18); Bilirubin, Total 0.4 mg/dL (0.2-1.0); C-Reactive Protein 0.51 mg/dL (0.0-0.3); CO2 28.3 mmol/L (21.0-32.0); CREATININE 0.9 mg/dL (0.55-1.02); Calcium 8.6 mg/dL (8.5-10.1); Chloride 104 mmol/L (98-107); Estimated GFR 76.92 (mL/min/1.73m2); Glucose 89 mg/dL (74-106); Potassium 4.2 mmol/L (3.5-5.1); Sodium 140 mmol/L (136-145); Total Protein 6.9 g/dL (6.4-8.2)
== END 2022-12-04 14:42 | disposition home or self-care (01) ==
LOC: LBN 14:41
PROVIDERS: PCP Nurse Practitioner Family; Visit Provider Nurse Practitioner Family
DX: T85.4 Mechanical complication of breast prosthesis and implant (principal)
CPT/HCPCS: 80053; 85025; 86140

== ENCOUNTER 2022-12-11 11:47 | Outpatient (REF) | payer BC, SELFPAY ==
[2022-12-11 12:42] LABS: Abs Immature Grans 0.01 10^3/uL (0.0-0.06); Absolute Basophil Count 0.04 10^3/uL (0.0-0.2); Absolute Eosinophil Count 0.39 10^3/uL (0.0-0.7); Absolute Monocyte Count 0.55 10^3/uL (0.1-0.8); Absolute Neutrophil Count 3.72 10^3/uL (1.2-6.7); Basophils % 0.7; Eosinophils % 6.6; HCT 33.7 % (36.0-46.0); HGB 10.4 g/dL (11.2-15.7); Immature Grans % 0.2; Lymphocytes % 20.3; MCH 26.1 pg (27.0-33.0); MCHC 30.9 % (32.0-36.0); MCV 85 fL (80-95); MPV 10.4 fL (8.0-11.0); Monocytes % 9.3; Neutrophils % 62.9; Platelet Count 321 10^3/uL (130-400); RBC 3.99 10^6/uL (3.93-5.22); RDW-SD 43.5 fL; WBC 5.91 10^3/uL (4.4-10.8)
[2022-12-11 12:55] LABS: ALT 17 U/L (14-59); AST 14 U/L (15-37); Albumin 3.3 g/dL (3.4-5.0); Alkaline Phosphatase 82 U/L (46-116); Anion Gap 6.2 mmol/L (3-11); BUN 12 mg/dL (7-18); Bilirubin, Total 0.4 mg/dL (0.2-1.0); C-Reactive Protein 0.29 mg/dL (0.0-0.3); CO2 29.8 mmol/L (21.0-32.0); CREATININE 0.8 mg/dL (0.55-1.02); Calcium 8.8 mg/dL (8.5-10.1); Chloride 105 mmol/L (98-107); Glucose 85 mg/dL (74-106); Potassium 4.2 mmol/L (3.5-5.1); Sodium 141 mmol/L (136-145)
== END 2022-12-11 11:48 | disposition home or self-care (01) ==
LOC: LBN 11:47
PROVIDERS: PCP Nurse Practitioner Family; Visit Provider Student in an Organized Health Care Education/Training Program
DX: T84.51XD Infection and inflammatory reaction due to internal right hip prosthesis, subsequent encounter (principal); Z96.641 Presence of right artificial hip joint; M25.551 Pain in right hip
CPT/HCPCS: 80053; 85025; 86140

== ENCOUNTER 2022-12-18 12:48 | Outpatient (REF) | payer BC, SELFPAY ==
[2022-12-18 13:49] LABS: Abs Immature Grans 0.02 10^3/uL (0.0-0.06); Absolute Basophil Count 0.04 10^3/uL (0.0-0.2); Absolute Eosinophil Count 0.39 10^3/uL (0.0-0.7); Absolute Lymphocyte Count 1.24 10^3/uL (1.2-3.4); Absolute Monocyte Count 0.67 10^3/uL (0.1-0.8); Basophils % 0.6; Eosinophils % 6.3; HCT 35.6 % (36.0-46.0); HGB 10.7 g/dL (11.2-15.7); Immature Grans % 0.3; Lymphocytes % 20.1; MCH 24.9 pg (27.0-33.0); MCHC 30.1 % (32.0-36.0); MCV 83 fL (80-95); Monocytes % 10.9; Neutrophils % 61.8; Platelet Count 308 10^3/uL (130-400); RDW 13.9 % (11.7-14.6); RDW-SD 41.9 fL; WBC 6.16 10^3/uL (4.4-10.8)
[2022-12-18 14:10] LABS: ALT 15 U/L (14-59); AST 18 U/L (15-37); Albumin 3.3 g/dL (3.4-5.0); Alkaline Phosphatase 74 U/L (46-116); Anion Gap 5.5 mmol/L (3-11); BUN 14 mg/dL (7-18); Bilirubin, Total 0.4 mg/dL (0.2-1.0); C-Reactive Protein 0.28 mg/dL (0.0-0.3); CO2 28.5 mmol/L (21.0-32.0); CREATININE 0.8 mg/dL (0.55-1.02); Calcium 8.7 mg/dL (8.5-10.1); Chloride 105 mmol/L (98-107); Glucose 81 mg/dL (74-106); Potassium 4.1 mmol/L (3.5-5.1); Sodium 139 mmol/L (136-145); Total Protein 7.1 g/dL (6.4-8.2)
== END 2022-12-18 12:49 | disposition home or self-care (01) ==
LOC: LBN 12:48
PROVIDERS: PCP Nurse Practitioner Family; Visit Provider Student in an Organized Health Care Education/Training Program
DX: T84.51XD Infection and inflammatory reaction due to internal right hip prosthesis, subsequent encounter (principal); Z96.641 Presence of right artificial hip joint
CPT/HCPCS: 80053; 85025; 86140

== ENCOUNTER 2022-12-25 11:25 | Outpatient (REF) | payer BC, SELFPAY ==
[2022-12-25 12:38] LABS: Abs Immature Grans 0.01 10^3/uL (0.0-0.06); Absolute Basophil Count 0.05 10^3/uL (0.0-0.2); Absolute Eosinophil Count 0.37 10^3/uL (0.0-0.7); Absolute Lymphocyte Count 1.24 10^3/uL (1.2-3.4); Absolute Monocyte Count 0.57 10^3/uL (0.1-0.8); Absolute Neutrophil Count 3.45 10^3/uL (1.2-6.7); Basophils % 0.9; Eosinophils % 6.5; HCT 34.9 % (36.0-46.0); HGB 10.5 g/dL (11.2-15.7); Immature Grans % 0.2; Lymphocytes % 21.8; MCH 24.9 pg (27.0-33.0); MCHC 30.1 % (32.0-36.0); MCV 83 fL (80-95); MPV 10.5 fL (8.0-11.0); Neutrophils % 60.6; Platelet Count 335 10^3/uL (130-400); RBC 4.21 10^6/uL (3.93-5.22); RDW 13.5 % (11.7-14.6); RDW-SD 41.1 fL; WBC 5.69 10^3/uL (4.4-10.8)
[2022-12-25 13:01] LABS: ALT 12 U/L (14-59); AST 13 U/L (15-37); Albumin 3.3 g/dL (3.4-5.0); Alkaline Phosphatase 67 U/L (46-116); Anion Gap 5.7 mmol/L (3-11); BUN 13 mg/dL (7-18); Bilirubin, Total 0.4 mg/dL (0.2-1.0); C-Reactive Protein 0.32 mg/dL (0.0-0.3); CO2 28.3 mmol/L (21.0-32.0); CREATININE 0.8 mg/dL (0.55-1.02); Calcium 8.7 mg/dL (8.5-10.1); Chloride 104 mmol/L (98-107); Glucose 86 mg/dL (74-106); Sodium 138 mmol/L (136-145); Total Protein 7.2 g/dL (6.4-8.2)
== END 2022-12-25 11:26 | disposition home or self-care (01) ==
LOC: LBN 11:25
PROVIDERS: PCP Nurse Practitioner Family; Visit Provider Student in an Organized Health Care Education/Training Program
DX: M25.551 Pain in right hip (principal); Z96.641 Presence of right artificial hip joint; T84.51XD Infection and inflammatory reaction due to internal right hip prosthesis, subsequent encounter
CPT/HCPCS: 80053; 85025; 86140

== ENCOUNTER → 2023-10-02 02:14 | Outpatient (CLI) | payer BC, SELFPAY ==
--- NOTE | 2023-10-02 08:00 | DI.MAMMO_ITS ---
Exam(s) MAMMO SCREENING EXAM: MAMMO SCREENING CLINICAL HISTORY: screening,z12.39 TECHNIQUE: Bilateral full field digital CC and MLO mammographic images were obtained with 3D tomosyn thesis and utilizing computer aided detection (CAD). COMPARISON: Available for comparison. FINDINGS: Masses/Architectural Distortion: None seen. Microcalcifications: No suspicious pleomorphic-type are seen. Skin Thickening/Nipple Retraction: None. IMPRESSION: 1. No significant interval change with no specific features of malignancy noted. 2. Unless there is more urgent need, screening mammography is recommended, as per [place] [employer] guidelines. BI-RADS Category 1 - Negative Breast Density - Category B - Scattered areas of fibroglandular density Breast density category C or D implies that the patient has dense breast tissue. Dense breast tissue is very common and is not abnormal but dense breast tissue can make it harder to find cancer on a ma mmogram. Also, dense breast tissue may increase their breast cancer risk. This information about the result of the mammogram report was provided to the patient to raise their awareness. Use this report when you speak with the patient about their risks for breast cancer, which includes their family hist ory. At that time, you may recommend for more screening tests (Ultrasound or MRI) as they might be us eful based on their risk. A negative radiographic report should not delay biopsy if a dominant or clinically suspicious mass is present. Up to ten percent of cancers are not identified on mammography. A negative report may reinforce clinical impression. Adenosis and dense breasts may obscure an underlying neoplasm. False positive reports average 6 to 10%. Patient will receive a letter notifying them of these results.
== END ==
PROVIDERS: PCP Nurse Practitioner Family; Visit Provider Nurse Practitioner Family
DX: Z12.31 Encounter for screening mammogram for malignant neoplasm of breast (principal)
CPT/HCPCS: 77063; 77067

== ENCOUNTER 2023-10-18 04:51 | Outpatient (CLI) | payer BC, SELFPAY ==
[2023-10-18 10:02] LABS: HCT 43.1 % (36.0-46.0); HGB 13.7 g/dL (11.2-15.7); MCH 26.7 pg (27.0-33.0); MCHC 31.8 % (32.0-36.0); MCV 84 fL (80-95); MPV 9.8 fL (8.0-11.0); Platelet Count 307 10^3/uL (130-400); RBC 5.14 10^6/uL (3.93-5.22); RDW 14.9 % (11.7-14.6); RDW-SD 45.4 fL; WBC 7.27 10^3/uL (4.4-10.8)
[2023-10-18 10:16] LABS: Anion Gap 10.5 mmol/L (3-11); BUN 12 mg/dL (7-18); CO2 25.5 mmol/L (21.0-32.0); CREATININE 0.9 mg/dL (0.55-1.02); Calcium 8.8 mg/dL (8.5-10.1); Calculated LDL 113 mg/dL (<100); Chloride 104 mmol/L (98-107); Cholesterol 189 mg/dL (<200); Estimated GFR 76.44 (mL/min/1.73m2); Glucose 92 mg/dL (74-106); HDL Cholesterol 61 mg/dL (40-60); Potassium 3.7 mmol/L (3.5-5.1); Sodium 140 mmol/L (136-145); Triglyceride 76 mg/dL (<150)
[2023-10-18 20:52] LABS: Hepatitis C Ab w Rflx HCV PCR Negative (Negative)
== END 2023-10-18 04:52 | disposition home or self-care (01) ==
LOC: LBO 04:51
PROVIDERS: PCP Nurse Practitioner Family; Visit Provider Nurse Practitioner Family
DX: Z00.00 Encounter for general adult medical examination without abnormal findings (principal)
CPT/HCPCS: 36415; 80048; 80061; 85027; 86803

== ENCOUNTER → 2023-12-19 16:07 | Outpatient (CLI) | payer BC, SELFPAY ==
--- NOTE | 2023-12-19 15:15 | DI.RAD_ITS ---
Exam(s) XR WRIST LT COMPLETE EXAM: XR WRIST LT COMPLETE CLINICAL HISTORY: left lateral wrist pain M25.532 PAIN LEFT WRIST. TECHNIQUE: 2D digital imaging was performed. Three views. COMPARISON: No exams were available for comparison FINDINGS: BONES: No acute fracture is present. No bony destructive lesion is seen. JOINTS: The carpal bones are normally aligned. SOFT TISSUE: Normal. IMPRESSION: Unremarkable radiographs of the left wrist. DATA REPOSITORY: RADIATION DOSE DELIVERED:
== END ==
PROVIDERS: PCP Nurse Practitioner Family; Visit Provider Family Medicine
DX: M25.532 Pain in left wrist (principal); Z12.31 Encounter for screening mammogram for malignant neoplasm of breast
CPT/HCPCS: 73110

== ENCOUNTER 2024-07-19 16:10 | Emergency (ER) | payer BC, SELFPAY ==
[2024-07-19] VITALS (19 sets, daily range): BP systolic 136–164; BP diastolic 47–90; PULSE 74–96; RESP 9–26; TEMP 36.4; O2SAT 93–99
--- NOTE | 2024-07-19 16:00 | RT.EKG_ITS ---
APPROVED REPORT Exam: Resting ECG Reason for Exam: chest pain Patient Location: E HR:85 bpm ECG Measurements Heart Rate 85 AXIS WY 139 P 28 QRSd 99 QRS 7 QT 382 T [id number] QTc 455 Conclusion Sinus rhythm 85 Normal axis no stemi
--- NOTE | 2024-07-19 16:45 | RT.EKG_ITS ---
APPROVED REPORT Exam: Resting ECG Reason for Exam: chest pain Patient Location: E HR:80 bpm ECG Measurements Heart Rate 80 AXIS SD 150 P 35 QRSd 96 QRS 15 QT 396 T [id number] QTc 457 Conclusion Sinus rhythm. 80 normal axis no stemi
--- NOTE | 2024-07-19 16:45 | DI.RAD_ITS ---
Exam(s) XR PORTABLE CHEST AP EXAM: XR PORTABLE CHEST AP CLINICAL HISTORY: chest pain TECHNIQUE: 2D digital imaging was performed of the chest. One image was obtained. An AP view was ob tained. COMPARISON: No exams were available for comparison FINDINGS: MEDIASTINUM: Normal. HEART: Normal. PULMONARY VASCULATURE: Normal. LUNGS: Clear. PLEURAL SPACE: No pleural effusion or pneumothorax. BONE:Within normal limits for the patient's age. OTHER FINDINGS:Normal. IMPRESSION: No acute pulmonary findings. DATA REPOSITORY: RADIATION DOSE DELIVERED:
[2024-07-19 17:07] LABS: Abs Immature Grans 0.03 10^3/uL (0.0-0.06); Absolute Basophil Count 0.06 10^3/uL (0.0-0.2); Absolute Eosinophil Count 0.38 10^3/uL (0.0-0.7); Absolute Lymphocyte Count 1.95 10^3/uL (1.2-3.4); Absolute Monocyte Count 0.57 10^3/uL (0.1-0.8); Absolute Neutrophil Count 5.59 10^3/uL (1.2-6.7); Basophils % 0.7 %; Eosinophils % 4.4 %; HCT 45.9 % (36.0-46.0); HGB 14.7 g/dL (11.2-15.7); Immature Grans % 0.3 %; Lymphocytes % 22.7 %; MCV 87 fL (80-95); MPV 9.8 fL (8.0-11.0); Monocytes % 6.6 %; Neutrophils % 65.3 %; Platelet Count 292 10^3/uL (130-400); RBC 5.25 10^6/uL (3.93-5.22); RDW 12.9 % (11.7-14.6); RDW-SD 41.3 fL; WBC 8.58 10^3/uL (4.4-10.8)
[2024-07-19 17:29] LABS: ALT 34 U/L (14-59); AST 40 U/L (15-37); Alkaline Phosphatase 76 U/L (46-116); Anion Gap 8.4 mmol/L (3-11); BUN 14 mg/dL (7-18); CO2 27.6 mmol/L (21.0-32.0); CREATININE 1.1 mg/dL (0.55-1.02); Calcium 9.2 mg/dL (8.5-10.1); Chloride 101 mmol/L (98-107); Estimated GFR 59.71 (mL/min/1.73m2); Glucose 122 mg/dL (74-106); Magnesium 1.9 mg/dL (1.8-2.4); NT-proBNP 176 pg/mL (<300); Potassium 3.5 mmol/L (3.5-5.1); Sodium 137 mmol/L (136-145); Total Protein 8.5 g/dL (6.4-8.2)
[2024-07-19 17:30] LABS: Troponin I < 4 ng/L (4-51)
[2024-07-19 18:03] LABS: Troponin I 5 ng/L (4-51)
--- NOTE | 2024-07-19 19:52 | W.ED.GENAD ---
Discharge Plan Disposition Patient Disposition: Home Condition: Stable Discharge Details Clinical Impression: Chest pain Primary Care Provider: Alexandria Navarro ED Provider: Damari Shen Home Meds and New Rx's Prescriptions: No Action acetaminophen 500 mg capsule 500 mg PO Q6H PRN Alive Women's Gummy Vitamin 120 mcg- 37.5 mg tablet,chewable 1 tab PO DAILY Discharge Instructions Instructions: Chest Pain (DC) Additional Instructions: BLOOD WORK AND EKG ARE REASSURING THAT YOUR SYMPTOMS ARE NOT FROM CARDIAC ETIOLOGY MONITOR SYMPTOMS AND RETURN FOR RE-EVALUATION OR FOLLOW UP WITH YOUR PCP IF THEY PERSIST Discharge Data Discharge Date/Time-TO BE ENTERED AT DEPARTURE: 07/19/24 18:20 HPI General Date/Time Provider Initiated Documentation: 07/19/24 16:46. Limitations to Documentation: no limitations. Information obtained by: patient. HPI Narrative: 54-year-old female without significant past medical history presents for evaluation of chest pain. She reports that she had an episode of pain earlier today. Describes it as substernal, nonradiating. Not associated with nausea, diaphoresis or shortness of breath. Symptoms went away on their own. She then several hours later had another episode of the symptoms after eating a sandwich. Again no associated symptoms. She reports that now that she is presenting here, her symptoms have resolved. Related Data Home Medications ?Medication ?Instructions ?Recorded ?Confirmed acetaminophen 500 mg capsule 500 mg PO Q6H PRN 12/19/23 07/19/24 zhnmoevm-rguv-vtzuw acid 120 1 tab PO DAILY Multi vitamin 12/19/23 07/19/24 mcg-herb no.293 37.5 mg chewable tablet (Alive Women's Gummy Vitamin) Allergies Allergy/AdvReac Type Severity Reaction Status Date / Time No Known Allergies Allergy Verified 07/19/24 16:32 General Stated Complaint: Chest Pain SEJAL: 3 Exam Narrative Exam Narrative: Review of Systems: All systems reviewed & are unremarkable except as noted in HPI and below Well-developed, no acute distress NCAT PERRL, normal conjunctiva RRR no chest wall tenderness Unlabored respiratory effort clear bilaterally Nondistended abdomen soft nontender Extremities w/o edema + Anxious Course Vital Signs Vital signs: Vital Signs Temperature 36.4 C 07/19/24 16:27 Pulse 86 07/19/24 16:27 Respiratory Rate 16 07/19/24 16:27 Blood Pressure 145/78 H 09/07/24 16:27 Pulse Oximetry 98 07/19/24 16:27 Temperature 36.4 C 07/19/24 16:27 Pulse 74 07/19/24 18:01 Pulse 93 H 07/19/24 18:10 Respiratory Rate 18 07/19/24 18:10 Respiratory Effort Normal 07/19/24 16:30 Blood Pressure 153/65 H 07/19/24 18:01 Blood Pressure Mean 91 07/19/24 18:01 Pulse Oximetry 96 07/19/24 18:10 Pain Level 4 07/19/24 16:27 Lab/Test Results Lab/Test Results: Laboratory Tests Range/Units 07/19/24 07/19/24 07/19/24 16:42 17:40 19:47 WBC (4.4-10.8) 10^3/uL 8.58 RBC (3.93-5.22) 10^6/uL 5.25 H Hgb (11.2-15.7) g/dL 14.7 Hct (36.0-46.0) % 45.9 MCV (80-95) fL 87 MCH (27.0-33.0) pg 28.0 MCHC (32.0-36.0) % 32.0 RDW (11.7-14.6) % 12.9 Plt Count (130-400) 10^3/uL 292 MPV (8.0-11.0) fL 9.8 Immature Gran % % 0.3 Neutrophils % % 65.3 Lymphocytes % % 22.7 Monocytes % % 6.6 Eosinophils % % 4.4 Basophils % % 0.7 Nucleated RBC % (0.0-0.3) % 0.0 Absolute Neutrophils (1.2-6.7) 10^3/uL 5.59 Absolute Lymphocytes (1.2-3.4) 10^3/uL 1.95 Absolute Monocytes (0.1-0.8) 10^3/uL 0.57 Absolute Eosinophils (0.0-0.7) 10^3/uL 0.38 Absolute Basophils (0.0-0.2) 10^3/uL 0.06 Sodium (136-145) mmol/L 137 Potassium (3.5-5.1) mmol/L 3.5 Chloride (98-107) mmol/L 101 Carbon Dioxide (21.0-32.0) mmol/L 27.6 Anion Gap (3-11) mmol/L 8.4 BUN (7-18) mg/dL 14 Creatinine (0.55-1.02) mg/dL 1.1 H Est GFR (CKD-EPI 2020) (mL/min/1.73m2) 59.71 Glucose (74-106) mg/dL 122 H Calcium (8.5-10.1) mg/dL 9.2 Magnesium (1.8-2.4) mg/dL 1.9 Total Bilirubin (0.2-1.0) mg/dL 0.70 AST (15-37) U/L 40 H ALT (14-59) U/L 34 Alkaline Phosphatase (46-116) U/L 76 Troponin I High Sens (4-51) ng/L < 4 L 5 Cancelled NT-Pro-B Natriuret Pep (<300) pg/mL 176 Total Protein (6.4-8.2) g/dL 8.5 H Albumin (3.4-5.0) g/dL 4.0 Medical Decision Making Urgent evaluation of chest pain. The patient is pain-free at this time. Her EKG was reviewed and independently interpreted. Sinus rhythm, rate 80, normal axis, no ST segment changes indicating acute ischemia. The patient has no risk factors of CAD including no hypertension, tobacco abuse, diabetes. Given her low heart score and normal EKG, I will obtain 1 high-sensitivity troponin given her age. Other differential diagnosis include reflux, GERD, lower suspicion for cholelithiasis or pancreatitis given her benign abdominal exam. Low suspicion for pneumothorax given bilateral Clear breath sounds. Doubt aortic pathology given the absence of pain and normal blood pressures at this time. Lab work reviewed. No anemia, normal white blood cell count. Creatinine slightly on the higher side of 1.1, but this is not a significant abnormality clinically. High-sensitivity troponin is negative. In fact to troponins were obtained and both are negative chest x-ray reviewed and independently interpreted by me: No focal consolidation, normal heart size, no pulmonary edema or pleural effusion. At this time I feel that the patient has been evaluated for acute emergencies and no additional workup is indicated. She is discharged in good condition. I recommend that if she has persistent or ongoing symptoms she will present for reevaluation or follow-up with her PCP. Recommend Motrin Tylenol for discomfort, Tums or Pepcid for food related pain. 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 Daughter Bhxdes-vi-myzp transgender person Maternal Grandfather Cancer of spine Maternal Grandmother Myocardial infarction Heart disease Ovarian cancer Paternal Grandfather No problems noted. Paternal Grandmother No problems noted. Son No problems noted. Son No problems noted. Social History Smoking/Tobacco Use Status: Never Second Hand Exposure: Yes Smoking risk assessment performed?: Yes Alcohol Intake: current Alcohol Intake frequency: a few times a week Alcohol type: wine Drug use: Never Substance use type: does not use Adopted: No Caregiver/Support person: No Foster care: No Household members: spouse Housing: house Communication Needs: Corrective Lenses Education Level: college Do you need help understanding health information?: Rarely current occupation: trouble clerk/assistaant cook Pets and animals: Yes Pets and animals: cat(s) Sexually active: Yes Do you think of yourself as: straight/heterosexual Current gender identity: female What is your relationship status?: How often do you talk on the phone with friends or family?: three or more times per week How often do you get together with friends or relatives?: twice per week How often do you attend catholic or restorationist services?: 1-3 times per year Do you belong to any clubs or organized social groups?: yes Panel score (0-1 are the most socially isolated patients): 3 What type of physical activity do you participate in: regular exercise Duration: 45-60 minutes/day Frequency: 1-2 times per week Jayshree/Presybeterian: Christianity Special jayshree needs: No Agree to transfusion: Yes Seatbelt use: always Helmet use: Yes Helmet use: always Drive intox or ride w/intox stage driver: No Working smoke detector in home: Yes Firearms in home: Yes Firearms unloaded and locked: Yes Do you feel safe at home: Yes Do you feel safe in your relationship?: Yes History History 3 Para 3 Hx # Term Pregnancies Multiple births Hx # Pregnancies Ectopic pregnancies AB induced Hx Number of Living Children 3 AB spontaneous
== END 2024-07-19 18:20 | disposition home or self-care (01) ==
PROVIDERS: Emergency Provider Emergency Medicine; PCP Nurse Practitioner Family
DX: R07.9 Chest pain, unspecified (principal)
CPT/HCPCS: 36415; 80053; 93005; 99283; 71045; 83735; 83880; 84484; 85025; 93010

== ENCOUNTER 2024-10-30 15:27 | Outpatient (REF) | payer BC, SELFPAY ==
--- NOTE | 2024-10-30 14:45 | PAPFT_PTH ---
PATIENT: Armida Sweeney LOC: [facility] U#:[id number] AGE/SX: 54/F ROOM: RE10/30/[address]: ILIA Olson : 1970 BED: DIS: 10/30/2024 SPEC #: [id number] RECD: 10/31/24 12:43 STATUS: SOUDariel REQ #: [id number] DESMOND: 10/30/24 14:[address]: Unknown,Unknown DEPT: [facility] Cytology RECD BY: Bárbara Gomez ENTERED: 10/31/24 12:43 SP TYPE: PAPFT OTHR DR: ILIA Olosn Tissues: 1 - CX/ENDOCX FOR PAP SMEARS Procedures: PAP THIN PREP/[facility] Screening HPV DNA PROBE Comments: [id number] (HPV 16 7 18/45)
== END 2024-10-30 15:28 | disposition home or self-care (01) ==
LOC: LBN 15:27
PROVIDERS: PCP Nurse Practitioner Family; Visit Provider Nurse Practitioner Family
DX: E78.5 Hyperlipidemia, unspecified (principal); Z12.11 Encounter for screening for malignant neoplasm of colon
CPT/HCPCS: 88142; 87624

== ENCOUNTER 2025-06-18 04:42 | Outpatient (CLI) | payer BC, SELFPAY ==
[2025-06-18 08:10] LABS: Hemoglobin A1C 5.0 % (<5.7)
[2025-06-18 08:49] LABS: Anion Gap 4.6 mmol/L (3-11); BUN 20 mg/dL (7-18); CO2 31.4 mmol/L (21.0-32.0); Calcium 9.3 mg/dL (8.5-10.1); Calculated LDL 130 mg/dL (<100); Chloride 104 mmol/L (98-107); Cholesterol 216 mg/dL (<200); Estimated GFR 75.50 (mL/min/1.73m2); Glucose 92 mg/dL (74-106); HDL Cholesterol 65 mg/dL (>or=50); Potassium 4.0 mmol/L (3.5-5.1); Sodium 140 mmol/L (136-145); Triglyceride 105 mg/dL (<150)
== END 2025-06-18 04:43 | disposition home or self-care (01) ==
PROVIDERS: PCP Nurse Practitioner Family; Visit Provider Nurse Practitioner Family
DX: E78.5 Hyperlipidemia, unspecified (principal)
CPT/HCPCS: 36415; 80048; 80061; 83036